=== PATIENT | female | born 1930 | race Caucasian/White ===

== ENCOUNTER 2016-06-17 23:08 | Emergency (ER) | payer MEDICARE, OTHER ==
[2016-09-28] MEDS ORDERED: ZOFRAN 4 MG TAB4 MG PO (15:43)
[2016-09-28] MEDS ORDERED: CARTIA XT240 MG PO (15:43)
[2016-09-28] MEDS ORDERED: SULFAMETHOXAZO1 EACH PO (15:44)
[2016-09-28] MEDS ORDERED: BUMEX 1MG TABLET1 MG PO (15:46)
[2016-09-28] MEDS ORDERED: ELIQUIS 5 MG TAB5 MG PO (15:46)
[2016-09-28] MEDS ORDERED: FERROUS SULFAT325 MG PO (15:47)
[2016-09-28] MEDS ORDERED: SINGULAIR10 MG PO (15:47)
[2016-09-28] MEDS ORDERED: TYLENOL W/CODEIN1 E1 PO (15:48)
[2016-09-28] MEDS ORDERED: CRESTOR5 MG PO (15:49)
[2016-09-28] MEDS ORDERED: CITALOPRAM HBR10 MG PO (15:50)
[2016-09-28] MEDS ORDERED: DIPROSONE 0.05%15 GM TOP (15:50)
[2016-09-28] MEDS ORDERED: SOTALOL80 MG PO (15:51)
[2016-09-28] MEDS ORDERED: VITAMIN D1000 UNI1 PO (15:52)
[2016-09-28] MEDS ORDERED: ASPIRIN EC81 MG PO (15:53)
[2016-09-29] MEDS ORDERED: CEFUROXIME500 MG PO (16:12)
== END 2016-06-18 05:28 | disposition home or self-care (01) ==
LOC: ER1 23:08
DX: R00.2 Palpitations (principal); I10 Essential (primary) hypertension; R60.0 Localized edema; Z86.711 Personal history of pulmonary embolism; Z86.79 Personal history of other diseases of the circulatory system; Z88.1 Allergy status to other antibiotic agents; Z79.01 Long term (current) use of anticoagulants; Z79.82 Long term (current) use of aspirin; Z79.899 Other long term (current) drug therapy
CPT/HCPCS: 36415; 71010; 80053; 82550; 82553; 83874; 84443; 84484; 85025; 85379; 93005; 93270; 99285